=== PATIENT | male | born 1940 | race Caucasian/White ===

== ENCOUNTER 2020-03-24 11:44 | Emergency (ER) | payer SELFPAY ==
[2020-03-24 11:48] VITALS: BP 148/75; PULSE 67; RESP 18; TEMP 36.7; O2SAT 99; BMI 27.3
[2020-03-24 11:53] VITALS: O2SAT 97
--- NOTE | 2020-03-24 11:56 | XR_ITS ---
WS: [id number] Portable AP upright chest, 03/24/2020 Clinical Data: ams/confusion Comparison: None. Findings: No nodules, masses or effusions are seen. The heart is normal. The pulmonary vascularity is not increased. No pneumonia or pneumothorax is seen. The aortic arch and descending aorta show mild tortuosity. XR/XR chest 1V portable [id number] Impression: Atherosclerosis.
--- NOTE | 2020-03-24 11:56 | CT_ITS ---
WS: [id number] CT HEAD TECHNIQUE: Noncontrast CT of the head obtained from the skullbase to the vertex. CLINICAL INFORMATION: ams/confusion COMPARISON: None. DLP: 781.[address] scans at [facility] use at least one of these dose optimization techniques: automat ed exposure control; mA and/or kV adjustment per patient size (includes targeted exams where dose is matched to clinical indication); or iterative reconstruction. FINDINGS: No evidence of intracranial hemorrhage or mass effect. Ventricular system and basal cisterns are oates nt. Mild small vessel changes with moderate parenchymal volume loss. Prior postoperative changes left frontal parietal and temporal craniectomy. Encephalomalacia in the underlying frontal and parietal l obes extending in the superior temporal lobe. Mild small vessel changes. Moderate parenchymal volume loss. Tiny chronic lacunar infarct right thalamus. No hydrocephalus. Vascular calcification. No extra -axial fluid collections. No evidence of mass or mass effect. Paranasal sinuses and mastoid air cells are well aerated. .Normal visualized soft tissues. CT/CT head wo con* [id number] IMPRESSION: 1. No evidence of intracranial hemorrhage or mass effect. 2. Mild small vessel changes. Moderate parenchymal volume loss. 3. Left frontal parietal temporal craniectomy. Encephalomalacia underlying bra in parenchyma. 4. No hydrocephalus. 5. Mild small vessel changes moderate parenchymal volume loss. 6. No acute intracranial findings. Message left for Ayde Jalloh at 03/24/2020 1:43 PM.
--- NOTE | 2020-03-24 11:57 | ECG_ITS ---
[facility] Test Date: 2020-03-24 Pat Name: janey franklin Department: Room: Gender: Male Hospice Nurse: : 1940 Requested By: Ayde Stoll Order Number: [id number] Young MD: Mary Beth Harrison M.D. Measurements Intervals [place] Rate: 61 P: 35 AL: 161 QRS: -11 QRSD: 98 T: 6 QT: 428 QTc: 433 Interpretive Statements SINUS RHYTHM MINIMAL VOLTAGE CRITERIA FOR LVH, CONSIDER NORMAL VARIANT [MEETS CRITERIA IN ONE OF: R(aVL), S(V1), R(V5), R(V5/V6)+S(V1)] No previous ECG available for comparison Electronically Signed On 03-24-2020 20:17:52 CDT by Mary Beth Harrison M.D. [id number]
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
[2020-03-24 12:54] LABS: Basophils % 0.5 %; Eosinophils % 0.6 %; Hematocrit 43.8 % (42.0-52.0); Hemoglobin 14.5 g/dL (11.7-16.6); Lymphocytes # 1.6 10^3/uL (0.8-4.8); Lymphocytes % 25.6 %; Mean Corpuscular HGB Conc 33.1 g/dL (30.0-36.0); Mean Corpuscular Hemoglobin 30.6 pg (28.0-34.0); Mean Corpuscular Volume 92.4 fL (80-94); Monocytes # 0.6 10^3/uL (0.2-0.9); Monocytes % 9.3 %; Neutrophils # 3.96 10^3/uL (1.8-7.7); Neutrophils % 63.7 %; Nucleated Red Blood Cells % 0 %; Platelet Count 199 10^3/cmm (130-400); Red Blood Count 4.74 10^6/uL (4.1-5.3); Red Cell Distribution Width 12.9 % (12.1-15.1); White Blood Count 6.2 10^3/uL (4.0-10.0)
[2020-03-24 13:17] LABS: Troponin(5th) Baseline 11 ng/L (0-15)
[2020-03-24 13:27] LABS: Alanine Aminotransferase 17 U/L (0-41); Alkaline Phosphatase 90 IU/L (40-130); Aspartate Amino Transferase 20 U/L (0-40); Blood Urea Nitrogen 16 mg/dL (8-23); Calcium 9.4 mg/dL (8.5-10.5); Carbon Dioxide 24 mmol/L (22-29); Chloride 105 mmol/L (98-107); Free T4 Free Thyroxine 1.26 ng/dL (0.82-1.77); Globulin 3.1 g/dL (1.3-4.6); Glucose 142 mg/dL (65-115); Magnesium 2.3 mg/dL (1.7-2.3); Osmolality Calculated 289 mOsm/kg (285-295); Sodium 140 mmol/L (136-145); Thyroid Stimulating Hormone 2.98 uIU/mL (0.27-4.20); Total Bilirubin 0.6 mg/dL (0.15-1.2); Total Protein 7.1 g/dL (6.6-8.7)
[2020-03-24 13:31] LABS: Alcohol Level < 10 mg/dL (0-10); Anion Gap 14.7 (5-19); Potassium 3.7 mmol/L (3.5-5.1)
[2020-03-24 13:33] LABS: Add Urine Microscopic? NO
[2020-03-24 13:47] LABS: Bilirubin Urine 1+ (NEGATIVE); Blood Urine Neg (Negative); Glucose Urine UA Norm (Normal); Ketones Urine Negative (Negative); Leukocyte Esterase Urine Negative (Negative); Nitrate Urine Negative (Negative); Protein Urine Neg (Negative); Specific Gravity, Urine 1.015 (1.005-1.030); Urine Appearance Clear (CLEAR); Urine Color Yellow (Yellow); Urobilinogen Urine 4 mg/dL (Negative); pH Urine 5 (5-7)
[2020-03-24 13:49] LABS: Amphetamines Screen Urine Negative (Negative); Barbiturates Screen Urine Negative (Negative); Benzodiazepines Screen Urine Negative (Negative); Cocaine Screen Urine Negative (Negative); Opiate Screen Urine Negative (Negative); PCP Screen Urine Negative (Negative); THC Screen Urine Negative (Negative)
--- NOTE | 2020-03-24 13:57 | ECG_ITS ---
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 Measurements Intervals [place] Rate: 67 P: 71 MD: 159 QRS: -18 QRSD: 101 T: -10 QT: 426 QTc: 451 Interpretive Statements SINUS RHYTHM MODERATE VOLTAGE CRITERIA FOR LVH, CONSIDER NORMAL VARIANT [MEETS CRITERIA IN ONE OF: R(aVL), S(V1), R(V5), R(V5/V6)+S(V1)] Compared to ECG 03/24/2020 12:17:54 No significant changes Electronically Signed On 03-24-2020 20:50:32 CDT by Mar yBeth Harrison M.D. [id number]
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
[2020-03-24 14:05] LABS: INR 0.93 (0.8-1.2)
[2020-03-24] MEDS: haloperidol inj 5 mg/mL INJ 1 mL 2 MG IM (14:24)
[2020-03-24 14:25] LABS: Acetaminophen < 5.0 ug/mL (10-30)
[2020-03-24 15:35] LABS: Troponin 5 2HR 9.26 ng/L (0-15)
[2020-03-24 15:36] LABS: Troponin 5 2HR Delta -1.74 ABS# (0-10)
--- NOTE | 2020-03-24 19:10 | PC.NURSE ---
patient report received from BLAZE Perez and care transferred to BLAZE Aguilar
[2020-03-24 19:27] LABS: Troponin 5 6HR 8.57 ng/L (0-15)
[2020-03-24 19:29] LABS: Troponin 5 6HR Delta -2.43 ng/L (0-12)
--- NOTE | 2020-03-24 20:25 | PC.NURSE ---
PATIENT GIVEN SACK LUNCH BY NURSE
[2020-03-24 20:53] VITALS: BP 122/64; PULSE 62; RESP 16; O2SAT 97
[2020-03-24 21:51] LABS: SARS Covid-2 Antigen Negative (Negative)
[2020-03-25 00:50] VITALS: BP 127/70; PULSE 63; RESP 14; O2SAT 98
== END 2020-03-25 01:08 ==
PROVIDERS: Emergency Provider Emergency Medicine; PCP Nurse Practitioner Family
DX: F23 Brief psychotic disorder (principal); R44.3 Hallucinations, unspecified; R45.1 Restlessness and agitation; F03.90 Unspecified dementia, unspecified severity, without behavioral disturbance, psychotic disturbance, mood disturbance, and anxiety; I70.90 Unspecified atherosclerosis
CPT/HCPCS: 12345; 36415; 70450; 71045; 80053; 80306; 80307; 81003; 83735; 84439; 84443; 84484; 85025; 85610; 87426; 93005; 96372; 99283; 99285; J1630

== ENCOUNTER 2020-08-03 05:29 | Emergency (ER) | payer MEDICARE, SELFPAY ==
[2020-08-03 05:36] VITALS: BP 137/68; PULSE 63; RESP 17; TEMP 36.8; O2SAT 95; BMI 27.3
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
--- NOTE | 2020-08-03 05:53 | XR_ITS ---
WS: [id number] PORTABLE CHEST HISTORY: dyspnea/cough COMPARISON: 03/24/2020 New mild interstitial thickening and haziness over the central LEFT lung. No consolidation. Small LEF T pleural effusion is new. Cardiac size: Mildly enlarged cardiac silhouette. Mediastinum/Aorta: Mild atherosclerosis aorta. No osseous abnormality seen. XR/XR chest 1V portable [id number] IMPRESSION: 1. Area of mild pneumonitis over the central LEFT lung with a small adjacent L EFT pleural effusion. 2. Mild cardiomegaly.
--- NOTE | 2020-08-03 05:53 | ECG_ITS ---
[facility] Test Date: 2020-08-03 Pat Name: David Shelley Department: Room: Gender: Male Cause Analyst: : 1940 Requested By: Ayden Ramirez Order Number: [id number] Hector MD: Mary Beth Harrison M.D. Measurements Intervals [place] Rate: 58 P: 56 FL: 148 QRS: -3 QRSD: 101 T: 4 QT: 446 QTc: 439 Interpretive Statements SINUS BRADYCARDIA Compared to ECG 03/24/2020 14:12:50 Sinus rhythm no longer present Electronically Signed On 08-03-2020 20:45:12 SHEEP OR CALF GRADER by Mary Beth Harrison M.D. [id number]
[2020-08-03 06:01] VITALS: BP 114/68; PULSE 58; RESP 12; O2SAT 96
[2020-08-03 06:10] LABS: Basophils % 0.7 %; Eosinophils # 0.2 10^3/uL (0.0-0.8); Eosinophils % 3.2 %; Hematocrit 43.2 % (42.0-52.0); Hemoglobin 14.2 g/dL (11.7-16.6); Lymphocytes # 1.6 10^3/uL (0.8-4.8); Lymphocytes % 28.8 %; Mean Corpuscular HGB Conc 32.9 g/dL (30.0-36.0); Mean Corpuscular Hemoglobin 28.4 pg (28.0-34.0); Mean Corpuscular Volume 86.4 fL (80-94); Mean Platelet Volume 9.7 fL (7.4-10.4); Monocytes # 0.5 10^3/uL (0.2-0.9); Monocytes % 8.8 %; Neutrophils # 3.24 10^3/uL (1.8-7.7); Neutrophils % 58.3 %; Nucleated Red Blood Cells % 0 %; Platelet Count 218 10^3/cmm (130-400); Red Cell Distribution Width 14.1 % (12.1-15.1); White Blood Count 5.6 10^3/uL (4.0-10.0)
[2020-08-03 06:34] LABS: Ammonia 23 umol/L (16-60); Lactic Sepsis W/Reflex 1.3 mmol/L (0.5-2.2)
[2020-08-03 06:35] LABS: Alanine Aminotransferase 10 U/L (0-41); Alkaline Phosphatase 98 IU/L (40-130); Anion Gap 11.8 (5-19); Aspartate Amino Transferase 15 U/L (0-40); Blood Urea Nitrogen 17 mg/dL (8-23); Calcium 9.2 mg/dL (8.5-10.5); Carbon Dioxide 27 mmol/L (22-29); Chloride 105 mmol/L (98-107); Globulin 2.2 g/dL (1.3-4.6); Glucose 119 mg/dL (65-115); Osmolality Calculated 293 mOsm/kg (285-295); Potassium 3.8 mmol/L (3.5-5.1); Sodium 140 mmol/L (136-145); Total Bilirubin 0.7 mg/dL (0.15-1.2); Total Protein 6.2 g/dL (6.6-8.7); Troponin(5th) Baseline 16 ng/L (0-15)
[2020-08-03 06:39] LABS: Acetaminophen < 5.0 ug/mL (10-30); Alcohol Level < 10 mg/dL (0-10); Salicylate < 0.3 mg/dL (3-10)
[2020-08-03 07:02] LABS: Ketone (Acetest) Serum Negative (Negative)
[2020-08-03 07:12] LABS: Add Urine Culture? No; Add Urine Microscopic? YES; Bacteria Urine TRACE /hpf; Bilirubin Urine 1+ (Negative); Blood Urine 2+ (Negative); Glucose Urine UA Norm (Normal); Ketones Urine 1+ (Negative); Leukocyte Esterase Urine Negative (Negative); Mucus Urine 1+ /hpf; Nitrate Urine Negative (Negative); Protein Urine Trace (Negative); RBC Urine 0-4 /hpf (0-2); Squamous Epithelial Cell Urine 0-4 /hpf (0-5); Urine Appearance SL Hazy (CLEAR); Urine Color Yellow (Yellow); Urobilinogen Urine 4 mg/dL (Negative); pH Urine 5 (5-7)
[2020-08-03 07:15] LABS: Amphetamines Screen Urine Negative (Negative); Barbiturates Screen Urine Negative (Negative); Benzodiazepines Screen Urine Negative (Negative); Cocaine Screen Urine Negative (Negative); Opiate Screen Urine Negative (Negative); PCP Screen Urine Negative (Negative); THC Screen Urine Negative (Negative)
--- NOTE | 2020-08-03 07:31 | CTR_ITS ---
PROCEDURE INFORMATION: Exam: CT Head Without Contrast Exam date and time: 08/03/2020 7:35 AM Age: 80 years old Clinical indication: Altered mental status/memory loss; Confusion or disorientation; Prior surgery; Surgery date: 6+ months; Additional info: AMS TECHNIQUE: Imaging protocol: Computed tomography of the head without contrast. Radiation optimization: All CT scans at this facility use at least one of these dose optimization techniques: automated exposure control; mA and/or kV adjustment per patient size (includes targeted exams where dose is matched to clinical indication); or iterative reconstruction. COMPARISON: CT head wo con* [id number] 03/24/2020 1:09 PM RADIATION DOSE METRICS: Total DLP (mGy-cm): 773.49 FINDINGS: Brain: There is chronic left middle cerebral artery distribution infarct. There is a small chronic right thalamic lacunar infarct. There is no acute intracranial hemorrhage. No extra-axial fluid collection. No evidence of acute infarct. Nichols white differentiation is intact. There is no evidence of mass. There is no mass effect or midline shift. Cerebral ventricles: No ventriculomegaly. Bones/joints: There is left temporoparietal craniectomy. Paranasal sinuses: Visualized sinuses are unremarkable. No fluid levels. Mastoid air cells: No significant mastoid effusion. Soft tissues: Unremarkable as visualized. CT/CT head wo con* [id number] IMPRESSION: No evidence of acute intracranial abnormality. No acute hemorrhage. No evidence of acute infarct or mass. Chronic left MCA infarct. Radiation Dose CTDIVOL = (mGy): DLP = 773.49 (mGy-cm)
--- NOTE | 2020-08-03 07:53 | ECG_ITS ---
[facility] Test Date: 2020-08-03 Pat Name: David Shelley Department: Room: Gender: Male Log Inspector: : 1940 Requested By: Ayden Ramirez Order Number: [id number] Hector MD: Mary Beth Harrison M.D. Measurements Intervals [place] Rate: 59 P: 62 DC: 160 QRS: 2 QRSD: 96 T: 15 QT: 437 QTc: 434 Interpretive Statements SINUS BRADYCARDIA Compared to ECG 08/03/2020 06:30:44 No significant changes Electronically Signed On 08-03-2020 21:31:32 WOOD FUEL PELLETIZER by Mayr Beth Harrison M.D. [id number]
[2020-08-03 08:00] LABS: Base Excess ABG 0.6 mmol/L (-2.0-2.0); HCO3 ABG 24.7 mmol/L (22-26); Oxygen Saturation ABG 98.3; PO2 ABG 83.3 mmHg (80.0-100.0)
[2020-08-03 08:03] LABS: Carboxyhemoglobin 0.8 %THgb (0.4-20.1); HGB O2 Sat 97.2 % (95-100); Methemoglobin 0.3 % (0.4-1.5); Total Hemoglobin 14.8 g/dL (14-18)
[2020-08-03 08:25] LABS: Arterial Blood Gas Hematocrit 45.2 % (42-52); Ionized Calcium Level - ABG 1.2 mmol/L (1.1-1.4)
[2020-08-03 10:12] LABS: Troponin 5 2HR 14.62 ng/L (0-15)
[2020-08-03 10:13] LABS: Troponin 5 2HR Delta -1.38 ABS# (0-10)
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
--- NOTE | 2020-08-03 11:00 | PC.PHAR ---
pt unable to verify medications-pts fmailjose jb states she doesnt know all the names and to call the [facility] office-called spoke with nael the medications entered are from the med list at [facility]-pts family states the pt has been out of medications for 5 days
[2020-08-03 11:44] LABS: SARS Covid-2 Antigen Negative (Negative)
--- NOTE | 2020-08-03 11:53 | ECG_ITS ---
[facility] Test Date: 2020-08-03 Pat Name: David Shelley Department: Room: Gender: Male Repossession Agent: : [id number] Requested By: Ayden Ramirez Order Number: [id number] Hector MD: Mary Beth Harrison M.D. Measurements Intervals [place] Rate: 60 P: ID: QRS: 4 QRSD: 95 T: 11 QT: 422 QTc: 422 Interpretive Statements SINUS RHYTHM Artifact compared to ECG 08/03/2020 08:02:42 Sinus bradycardia no longer present Electronically Signed On 08-04-2020 13:56:45 [employer] by Mary Beth Harrison M.D. [email or web address]
[2020-08-03 13:20] VITALS: BP 119/52; PULSE 60; RESP 18; O2SAT 99
[2020-08-03] MEDS: levoFLOXacin 750 mg Tablet PO (13:39)
[2020-08-06 18:01] LABS: ABG PH Result 7.43 (7.35-7.45); Alveolar-Arterial Oxygen Gradi 2.6 mmHg (5-10); Blood Gas Operator Identificat gc; Blood Gas Sample Site Brachial, right; Blood Gas Sample Type Arterial; Oxygen Device ROOM AIR
== END 2020-08-03 14:50 ==
PROVIDERS: Emergency Provider Family Medicine; PCP Nurse Practitioner Family
DX: F23 Brief psychotic disorder (principal); F03.90 Unspecified dementia, unspecified severity, without behavioral disturbance, psychotic disturbance, mood disturbance, and anxiety; J18.9 Pneumonia, unspecified organism; Z87.891 Personal history of nicotine dependence; Z79.899 Other long term (current) drug therapy
CPT/HCPCS: 12345; 36415; 70450; 71045; 80051; 80053; 80306; 80307; 81001; 82009; 82140; 82330; 82805; 83605; 84484; 85025; 87040; 87426; 93005; 99281; 99285

== ENCOUNTER → 2020-08-22 15:24 | Outpatient (BNVA) | payer MEDICARE, SELFPAY | PROVIDERS: PCP Nurse Practitioner Family; Referring Provider Chiropractor Orthopedic; Visit Provider Specialist | DX: G30.9 Alzheimer's disease, unspecified (principal); F02.80 Dementia in other diseases classified elsewhere, unspecified severity, without behavioral disturbance, psychotic disturbance, mood disturbance, and anxiety; Z87.891 Personal history of nicotine dependence | CPT/HCPCS: 96116; 99204; 99205 ==

== ENCOUNTER 2021-08-04 21:36 | Emergency (ER) | payer MEDICARE, OTHER, SELFPAY ==
[2021-08-04 21:42] VITALS: BP 101/61; PULSE 64; RESP 18; TEMP 36.7; O2SAT 96; BMI 28.8
--- NOTE | 2021-08-04 21:49 | CTR_ITS ---
PROCEDURE INFORMATION: Exam: CT Head Without Contrast Exam date and time: 08/04/2021 9:49 PM Age: 81 years old Clinical indication: Injury or trauma; Fall; Bleeding/hemorrhage; Prior surgery; Surgery date: 6+ months; Surgery type: Brain TECHNIQUE: Imaging protocol: Computed tomography of the head without contrast. Radiation optimization: All CT scans at this facility use at least one of these dose optimization techniques: automated exposure control; mA and/or kV adjustment per patient size (includes targeted exams where dose is matched to clinical indication); or iterative reconstruction. COMPARISON: CT head wo con* [id number] 08/03/2020 7:34 AM RADIATION DOSE METRICS: Total DLP (mGy-cm): 1693.17 FINDINGS: Brain: There is encephalomalacia in the left frontal and temporal lobes from previous surgery. Age appropriate atrophy and small vessel ischemic change. No evidence of intracranial hemorrhage, mass effect, midline shift or extra-axial fluid collections. Midline structures are normal. Nichols-white matter differentiation is normal. Cerebral ventricles: No ventriculomegaly. Paranasal sinuses: Visualized sinuses are unremarkable. No fluid levels. Mastoid air cells: Visualized mastoid air cells are well aerated. Orbital cavity: The patient has had bilateral lens replacement surgery. Vasculature: Carotid and vertebral artery atherosclerotic calcification. Bones/joints: There has been a left temporal craniectomy. Soft tissues: Unremarkable. CT/CT head wo con* [id number] IMPRESSION: No acute intracranial injury. Surgical changes as described above. Correlate clinically since no useful clinical history was given at the time of this dictation.
--- NOTE | 2021-08-04 21:49 | CTR_ITS ---
PROCEDURE INFORMATION: Exam: CT Cervical Spine Without Contrast Exam date and time: 08/04/2021 9:49 PM Age: 81 years old Clinical indication: Injury or trauma; Fall; Blunt trauma TECHNIQUE: Imaging protocol: Computed tomography images of the cervical spine without contrast. Radiation optimization: All CT scans at this facility use at least one of these dose optimization techniques: automated exposure control; mA and/or kV adjustment per patient size (includes targeted exams where dose is matched to clinical indication); or iterative reconstruction. COMPARISON: CT head wo con* [id number] 08/04/2021 10:06 PM RADIATION DOSE METRICS: Total DLP (mGy-cm): 980.58 FINDINGS: Vertebrae: There are mild degenerative changes present. Normal alignment. No acute fractures. Soft tissues: Unremarkable. Lungs: Lung apices are normal. CT/CT cervical spin wo con* [id number] IMPRESSION: No acute injury.
[2021-08-04 22:40] LABS: Basophils % 0.5 %; Eosinophils # 0.1 10^3/uL (0.0-0.8); Hematocrit 37.4 % (42.0-52.0); Hemoglobin 12.5 g/dL (11.7-16.6); Lymphocytes # 1.7 10^3/uL (0.8-4.8); Lymphocytes % 26.2 %; Mean Corpuscular HGB Conc 33.4 g/dL (30.0-36.0); Mean Corpuscular Hemoglobin 30.2 pg (28.0-34.0); Mean Corpuscular Volume 90.3 fl (80-94); Mean Platelet Volume 9.9 fL (7.4-10.4); Monocytes # 0.7 10^3/uL (0.2-0.9); Monocytes % 10.4 %; Neutrophils % 60.7 %; Nucleated Red Blood Cells % 0 %; Platelet Count 225 10^3/cmm (130-400); Red Blood Count 4.14 10^6/uL (4.1-5.3); Red Cell Distribution Width 13.2 % (12.1-15.1); White Blood Count 6.4 10^3/uL (4.0-10.0)
[2021-08-04 23:00] LABS: Alanine Aminotransferase 8 U/L (0-41); Albumin Level 3.8 g/dL (3.5-5.2); Alkaline Phosphatase 73 IU/L (40-130); Aspartate Amino Transferase 15 U/L (0-40); Blood Urea Nitrogen 21 mg/dL (8-23); Calcium 8.9 mg/dL (8.5-10.5); Carbon Dioxide 26 mmol/L (22-29); Chloride 104 mmol/L (98-107); Globulin 2.2 g/dL (1.3-4.6); Glucose 95 mg/dL (65-115); Osmolality Calculated 291 mOsm/kg (285-295); Sodium 139 mmol/L (136-145); Total Bilirubin 0.4 mg/dL (0.15-1.2)
--- NOTE | 2021-08-05 00:59 | ED_ITS ---
HPI - Fall General: Chief Complaint: Fall Stated Complaint: FALL Time Seen by Provider: 08/04/21 21:39 History of Present Illness: HPI Narrative: 81-year-old senior living patient presents after a fall out of bed. He evidently contused his left elbow and had negative x-rays today in the senior living, but was sent here for evaluation. He has a history of dementia, and history is difficult given that MD complaint: fall Onset (ago): hour(s) Fall from: out of bed Place fall occurred: senior living/SNF Loss of consciousness: Unsure Symptoms prior to fall: other Context: history of frequent falls and other Location of injury - extremities: Left: elbow Associated symptoms-after fall: Reports no associated symptoms Review of Systems General: Reports: ROS unobtainable due to medical condition PFSH ED PFSH: Medical History Dementia History of traumatic brain injury Surgical History History of brain surgery Family History Father Diabetes Social History Smoking and tobacco status: former smoker Alcohol intake: former History of recent travel: No Physical Exam Const: COMMON NORMALS: no acute distress EXAM LIMITATIONS: altered mental status GENERAL APPEARANCE: comfortable; not in distress HENMT: COMMON NORMALS: normocephalic and atraumatic HEAD & SCALP: normocephalic and atraumatic Eye: COMMON NORMALS: Equal, round and reactive pupils present and EOMs intact bilaterally PUPIL: Yes Equal, round and reactive pupils present Chest: COMMONS NORMALS: normal inspection of the chest Resp: COMMON NORMALS: normal respiratory effort, No use of accessory muscles and clear to auscultation bilaterally AUSCULTATION: clear to auscultation bilaterally Cardio: COMMON NORMALS: regular rate and regular rhythm RATE: regular rate RHYTHM: regular rhythm GI: COMMON NORMALS: Soft to palpation and non-tender INSPECTION: Yes abdominal distension (Mild with tympany) PALPATION: Yes Soft to palpation Extremity: NARRATIVE EXTREMITY EXAM: No deformity to extremities. No increased pain with movement of upper or lower extremities passively. Course Vital Signs: Vital signs: Vital Signs Temperature 98.1 F 08/04/21 21:42 Pulse Rate 64 08/04/21 21:42 Respiratory Rate 18 08/04/21 21:42 Blood Pressure 101/61 08/04/21 21:42 Pulse Oximetry 96 08/04/21 21:42 MDM - Fall MDM Narrative: Medical decision making narrative: Laboratory is benign in this patient. He is afebrile. He has a history of dementia so history is difficult. CT of the head and cervical spine are negative. His vitals are good. He will be allowed back to the senior living. Lab Data: Labs: Lab Results 08/04/21 08/04/21 22:32 22:32 WBC 6.4 10^3/uL 10^3/ uL (4.0-10.0) RBC 4.14 10^6/uL 10^6 /uL (4.1-5.3) Hgb 12.5 g/dL g/dL (11.7-16.6) Hct 37.4 % L % (42.0-52.0) MCV 90.3 fl fl (80-94) MCH 30.2 pg pg (28.0-34.0) MCHC 33.4 g/dL g/dL (30.0-36.0) RDW 13.2 % % (12.1-15.1) Plt Count 225 10^3/cmm 10^3 /cmm (130-400) MPV 9.9 fL fL (7.4-10.4) Neut % (Auto) 60.7 % % Lymph % (Auto) 26.2 % % [place] % (Auto) 10.4 % % Eos % (Auto) 2.0 % % Baso % (Auto) 0.5 % % Neut # (Auto) 3.90 10^3/uL 10^3 /uL (1.8-7.7) Lymph # (Auto) 1.7 10^3/uL 10^3/ uL (0.8-4.8) [place] # (Auto) 0.7 10^3/uL 10^3/ uL (0.2-0.9) Eos # (Auto) 0.1 10^3/uL 10^3/ uL (0.0-0.8) Baso # (Auto) 0.0 10^3/uL 10^3/ uL (0.0-0.1) Nucleated RBC % (a uto) 0 % % Nucleated RBCs # 0.0 /100WBC /100W BC Sodium 139 mmol/L mmol/L (136-145) Potassium 4.0 mmol/L mmol/L (3.5-5.1) Chloride 104 mmol/L mmol/L (98-107) Carbon Dioxide 26 mmol/L mmol/L (22-29) Anion Gap 13.0 (5-19) BUN 21 mg/dL mg/dL (8-23) Creatinine 0.7 mg/dL mg/dL (0.7-1.2) GFR Calculation Not Reportable Glucose 95 mg/dL mg/dL (65-115) Calculated Osmolal ity 291 mOsm/kg mOsm/ kg (285-295) Calcium 8.9 mg/dL mg/dL (8.5-10.5) Total Bilirubin 0.4 mg/dL mg/dL (0.15-1.2) AST 15 U/L U/L (0-40) ALT 8 U/L U/L (0-41) Alkaline Phosphata se 73 IU/L IU/L (40-130) Total Protein 6.0 g/dL L g/dL (6.6-8.7) Albumin 3.8 g/dL g/dL (3.5-5.2) Globulin 2.2 g/dL g/dL (1.3-4.6) Discharge Plan Discharge Patient Disposition: Home Clinical Impression: Dementia, Fall Condition: Stable Prescriptions: No Action divalproex [Depakote] 250 mg tablet,delayed release (DR/EC) 250 mg PO BID Qty: 180 RF: 1 Aricept 5 mg tablet 5 mg PO QPM Qty: 90 RF: 1 Proscar 5 mg tablet 5 mg PO DAILY Qty: 90 RF: 1 melatonin 10 mg tablet 10 mg PO BEDTIME Qty: 90 RF: 1 mirtazapine 7.5 mg tablet 7.5 mg PO BEDTIME Qty: 90 RF: 1 olanzapine 2.5 mg tablet 2.5 mg PO DAILY Qty: 90 RF: 1 omeprazole 20 mg tablet,delayed release (DR/EC) 20 mg PO DAILY Qty: 90 RF: 1 oxybutynin chloride 5 mg tablet extended release 24hr 5 mg PO DAILY Qty: 90 RF: 1 Effexor XR 37.5 mg capsule,extended release 24hr See Rx Instructions .ROUTE .COMPLEX Qty: 180 RF: 1 albuterol sulfate 2.5 mg /3 mL (0.083 %) Solution For Nebulization 2.5 mg INHALATION Q4H PRN (Reason: Shortness Of Breath) RF: 0 Tylenol Extra Strength 500 mg Tablet 500 - 1,000 mg PO PRN RF: 0 Discharge Orders: Discharge ED (Routine); Ordered 08/05/21 Ordered By: Julio Rodriguez Referrals: Araceli Ren FNP [Primary Care Provider] - Discharge Diet: Advance as tolerated Discharge Activity: Increase activity as tolerated Patient Instructions: Dementia (ED), Fall Prevention (ED) Activity Restrictions/Additional Instructions: Return for worsening mental status, vomiting, complaints of pain, any other concerning symptoms. Coding Level of Care Code ED Rubber Off for Sonia Card
== END 2021-08-05 01:51 | disposition home or self-care (01) ==
PROVIDERS: Emergency Provider Emergency Medicine; PCP Nurse Practitioner Family
DX: F03.90 Unspecified dementia, unspecified severity, without behavioral disturbance, psychotic disturbance, mood disturbance, and anxiety (principal); W19.XXXA Unspecified fall, initial encounter; Y92.129 Unspecified place in nursing home as the place of occurrence of the external cause; Z87.891 Personal history of nicotine dependence; Z87.820 Personal history of traumatic brain injury
CPT/HCPCS: 70450; 72125; 80053; 85025; 99283

== ENCOUNTER 2021-09-17 11:09 | Emergency (ER) | payer MEDICARE, OTHER, SELFPAY ==
[2021-09-17] VITALS (7 sets, daily range): BP systolic 105–135; BP diastolic 74–86; PULSE 57–75; RESP 12–20; TEMP 36.4; O2SAT 96–98; BMI 19.2
--- NOTE | 2021-09-17 11:10 | ED_ITS ---
HPI - Head Injury General: Chief complaint: Fall Stated complaint: AMS/LACERATION TOP OF HEAD Time Seen by Provider: 09/17/21 11:09 Limitations: altered mental status History of Present Illness: Mr Shelley is an 81-year-old gentleman who, per chart review, has Alzheimer's disease and resides at a skilled nursing who presents to the emergency department due to unwitnessed fall with head injury. Apparently a laceration was noted during shift change of unclear circumstances at about 7 AM. EMS was called around 10 AM and the patient was subsequently brought here. The patient himself does not provide any meaningful history, this is similar to prior ED presentations as documented however per EMS report to nurse the patient is significantly communicative and ambulatory. History is otherwise limited by patient's mental status. Onset (ago): hour(s) Mechanism of Injury: unsure Place: home (skilled nursing) Loss of Consciousness: unsure Location of injury: occipital Review of Systems General: Reports: ROS unobtainable due to mental status PFS ED PFSH: Medical History Dementia History of traumatic brain injury Surgical History History of brain surgery Family History Father Diabetes Social History Smoking and tobacco status: former smoker Alcohol intake: former History of recent travel: No Physical Exam Const: COMMON NORMALS: alert EXAM LIMITATIONS: altered mental status GENERAL APPEARANCE: ill appearing (Chronically) HENMT: COMMON NORMALS: normocephalic HEAD & SCALP: normocephalic and laceration (Posterior head approximately 3 cm) OTHER: Aside from laceration no significant trauma appreciated, jaw alignment normal, no segundo signs or raccoon eyes, no septal hematoma. Eye: COMMON NORMALS: conjunctivae normal CONJUNCTIVA: Yes conjunctivae normal SCLERA: sclerae normal Neck/C-Spine: COMMON NORMALS: supple GENERAL: Yes trachea midline Resp: COMMON NORMALS: normal respiratory effort and clear to auscultation bilaterally AUSCULTATION: clear to auscultation bilaterally Cardio: COMMON NORMALS: regular rate and regular rhythm RATE: regular rate RHYTHM: regular rhythm GI: COMMON NORMALS: Soft to palpation PALPATION: Yes Soft to palpation, No Guarding due to palpation present (GI) and No Rigid due to palpation PER CUSSION: normal to percussion Back/Pelvis: COMMON NORMALS: no thoracic nor lumbar tenderness Extremity: GENERAL: Yes normal exam except as noted and No edema Neuro: COMMON NORMALS: moves all extremities SENSORIUM/ORIENTATION: Yes alert and Yes Orientation impaired Psych: MEMORY/COGNITION: Yes memory grossly impaired and Yes cognition grossly impaired Procedures Laceration Laceration 1: Site: scalp Side (If applicable): left (near midline occiput) Size (cm): 3 Depth: simple, single layer Local Anesthetic: lidocaine 1% Amount of anesthesia used (mL): 2 Skin layer closed with: other (alvaro ) Number of sutures: 10 Technique: simple, interrupted Course ED course: - Patient was seen and evaluated by me at bedside - Patient placed on cardiac monitors, IV access obtained - Initial evaluation notable for exam as above, limitation of mental status which is reportedly chronic for the patient -Tdap updated - Labs notable for no leukocytosis, normal hemoglobin. No acute electrolyte derangement. Delta troponin is negative. Urinalysis with hematuria of unclear etiology - Imaging notable for head and neck CT negative for acute traumatic injury requiring intervention. Chest x-ray without acute lung pathology, there is a p robable nondisplaced fracture. Given this finding as well as hematuria and limited history due to patient's mental status additional CT imaging is felt to be warranted. CT chest abdomen pelvis notable for possibly acute left fourth and fifth rib fractures, no other acute injury. Patient is found to have marked enlargement of the prostate which may explain the patient's hematuria however does not require further inpatient management or ED evaluation. - Laceration repaired as noted, more alvaro use than typical due to wound tendency to splay open. Given duration from unclear time of fall to repair I will give the patient a course of antibiotics - Upon serial reexamination after treatment the patient was improved - Based on patient history, evaluation, labs, and imaging as interpreted the most likely cause of the patient's condition is fall of unclear etiology with head injury and laceration requiring repair as well as rib fractures - The results of ED evaluation were discussed with the patient including prescriptions and/or symptomatic cares (if applicable) including appropriate and responsible use, followup plan, and return precautions. The patient verbalized understanding and felt safe for discharge. - Patient discharged in satisfactory condition. Note: Click bubbles or prepopulated west in note writing are used for assistance with data collection and billing and are inherently more limited than narrative and other text portions of this note. Please use narrative for additional clinical history and defer to narrative/free test for any case of contradictory information. If information appears in only free text or click bubble it should be considered present or absent as reported. Please contact note service writer advisor for clarifications of clinical information or contradictory information. MDM is a brief summary, contradictory or erroneous seeming information should be clarified and full note should be reviewed. Vital Signs: Vital signs: Vital Signs Temperature 97.5 F L 09/17/21 11:17 Pulse Rate 75 09/17/21 18:15 Respiratory Rate 16 09/17/21 18:15 Blood Pressure 105/86 09/17/21 18:15 Pulse Oximetry 98 09/17/21 18:15 MDM - Head Injury Medcial Decision Making 81-year-old male with history of dementia presenting with unwitnessed fall and head injury with laceration. ED evaluation with CT scans performed only notable for the laceration and unclear though likely acute rib fractures. Incidental finding of enlarged prostate and hematuria. Laceration repaired with alvaro. Tdap updated. Discharged back to nursing facility in satisfactory condition. Medical Records I reviewed the patient's medical records. Lab Data I reviewed the patient's lab results. : 09/17/21 11:15 09/17/21 11:15 Radiology Impressions Cervical Spine CT 09/17/21 11:20 IMPRESSION: 1. No acute cervical spine fracture. 2. No high-grade central or foraminal stenosis. 3. Cervical spondylitic disease as described above. Head CT 09/17/21 11:20 IMPRESSION: 1. No acute intracranial hemorrhage or edema. 2. Large area of encephalomalacia LEFT frontal temporal lobe with a LEFT craniectomy. Stable over multiple prior exams. Chest X-Ray 09/17/21 12:28 IMPRESSION: 1. Probable nondisplaced fracture along the lateral margin of the left fourth rib. 2. No acute infiltrate or pneumothorax. Chest/Abdomen/Pelvis CT 09/17/21 12:28 IMPRESSION: 1. No pulmonary contusion or pneumothorax. 2. Age indeterminate but possibly acute lateral LEFT fourth and fifth rib fractures. There are additional more posterior fractures in the upper LEFT thorax which appear healed. 3. No visceral organ injury. 4. No ascites or free air. 5. Marked prostate enlargement. Laboratory Results WBC 6.1 10^3/uL (4.0-10.0) 09/17/21 11:15 RBC 3.90 10^6/uL (4.1-5.3) L 09/17/21 11:15 Hgb 11.8 g/dL (11.7-16.6) 09/17/21 11:15 Hct 35.9 % (42.0-52.0) L 09/17/21 11:15 MCV 92.1 fl (80-94) 09/17/21 11:15 MCH 30.3 pg (28.0-34.0) 09/17/21 11:15 MCHC 32.9 g/dL (30.0-36.0) 09/17/21 11:15 RDW 13.2 % (12.1-15.1) 09/17/21 11:15 Plt Count 226 10^3/cmm (130-400) 09/17/21 11:15 MPV 9.8 fL (7.4-10.4) 09/17/21 11:15 Neut % (Auto) 57.7 % 09/17/21 11:15 Lymph % (Auto) 28.9 % 09/17/21 11:15 [place] % (Auto) 9.9 % 09/17/21 11:15 Eos % (Auto) 2.5 % 09/17/21 11:15 Baso % (Auto) 0.8 % 09/17/21 11:15 Neut # (Auto) 3.50 10^3/uL (1.8-7.7) 09/17/21 11:15 Lymph # (Auto) 1.8 10^3/uL (0.8-4.8) 09/17/21 11:15 [place] # (Auto) 0.6 10^3/uL (0.2-0.9) 09/17/21 11:15 Eos # (Auto) 0.2 10^3/uL (0.0-0.8) 09/17/21 11:15 Baso # (Auto) 0.1 10^3/uL (0.0-0.1) 09/17/21 11:15 Nucleated RBC % (auto) 0 % 09/17/21 11:15 Nucleated RBCs # 0.0 /100WBC 09/17/21 11:15 Sodium 140 mmol/L (136-145) 09/17/21 11:15 Potassium 4.1 mmol/L (3.5-5.1) 09/17/21 11:15 Chloride 105 mmol/L (98-107) 09/17/21 11:15 Carbon Dioxide 24 mmol/L (22-29) 09/17/21 11:15 Anion Gap 15.1 (5-19) 09/17/21 11:15 BUN 22 mg/dL (8-23) 09/17/21 11:15 Creatinine 0.6 mg/dL (0.7-1.2) L 09/17/21 11:15 GFR Calculation Not Reportable 09/17/21 11:15 Glucose 100 mg/dL (65-115) 09/17/21 11:15 POC Glucose 94 mg/dL (70-110) 09/17/21 11:27 Calculated Osmolality 293 mOsm/kg (285-295) 09/17/21 11:15 Calcium 8.9 mg/dL (8.5-10.5) 09/17/21 11:15 Total Bilirubin 0.3 mg/dL (0.15-1.2) 09/17/21 11:15 AST 14 U/L (0-40) 09/17/21 11:15 ALT 10 U/L (0-41) 09/17/21 11:15 Alkaline Phosphatase 90 IU/L (40-130) 09/17/21 11:15 Troponin T Baseline 16 ng/L (0-15) H 09/17/21 11:15 Troponin T 120 Minute 12.93 ng/L (0-15) 09/17/21 13:07 Delta Troponin T -3.07 ABS# (0-10) L 09/17/21 13:07 Total Protein 6.3 g/dL (6.6-8.7) L 09/17/21 11:15 Albumin 3.8 g/dL (3.5-5.2) 09/17/21 11:15 Globulin 2.5 g/dL (1.3-4.6) 09/17/21 11:15 Urine Color [place] (Yellow) 09/17/21 12:22 Urine Appearance Hazy (CLEAR) A 09/17/21 12:22 Urine pH 7 (5-7) 09/17/21 12:22 Ur Specific [place] 1.015 (1.005-1.030) 09/17/21 12:22 Urine Protein 1+ (Negative) H 09/17/21 12:22 Urine Glucose (UA) Norm (Normal) 09/17/21 12:22 Urine Ketones Negative (Negative) 09/17/21 12:22 Urine Blood 3+ (Negative) H 09/17/21 12:22 Urine Nitrate Negative (Negative) 09/17/21 12:22 Urine Bilirubin Neg (Negative) 09/17/21 12:22 Urine Urobilinogen 1 mg/dL (Negative) H 09/17/21 12:22 Ur Leukocyte Esterase Negative (Negative) 09/17/21 12:22 Urine RBC Too numerous to cnt /hpf (0-2) H 09/17/21 12:22 Urine WBC 10-15 /hpf (0-5) H 09/17/21 12:22 Ur Squamous Epith Cells 0-4 /hpf (0-5) H 09/17/21 12:22 Amorphous Sediment Not Reportable 09/17/21 12:22 Urine Bacteria Trace /hpf (NONE) 09/17/21 12:22 EKG Data EKG 1: I personally reviewed and interpreted this EKG as follows: EKG interpretation date: 09/17/21 EKG interpretation time: 11:46 Interpretation: Twelve-lead EKG shows a regular rhythm at a rate of 56. IN interval 143, QRS duration 97, QTc 435. Normal axis. Interpretation: Sinus bradycardia. Nonspecific ST segment abnormalities. EKG 2: I personally reviewed and interpreted this EKG as follows: EKG interpretation date: 09/17/21 EKG interpretation time: 13:12 Interpretation: Twelve-lead EKG shows a regular rhythm at a rate of 63. IN interval 183, QRS duration 98, QTc 436. Normal axis. Interpretation: Sinus rhythm. Nonspecific ST segment abnormalities. Discharge Plan Discharge Patient Disposition: Home Clinical Impression: Laceration of scalp, Head injury, Multiple rib fractures, Altered mental status, Fall, Hematuria, Enlarged prostate Condition: Stable Prescriptions: New cephalexin 500 mg capsule 500 mg PO Q6H 7 Days Qty: 28 0RF No Action medroxyprogesterone 10 mg tablet 10 mg PO DAILY@07 0RF Tylenol 325 mg Tablet 650 mg PO Q6H PRN (Reason: Pain) 0RF Paxil 10 mg Tablet 5 mg PO DAILY@07 0RF Rx Instructions: for 3 days (last dose 09/17/21) sertraline 25 mg tablet 25 mg PO DAILY@07 0RF divalproex 125 mg capsule, delayed rel sprinkle 500 mg PO BID@ 0RF memantine 5 mg Tablet 5 mg PO DAILY@07 0RF Milk Of Magnesia Concentrated 2,400 mg/10 mL Suspension 30 ml PO DAILY PRN (Reason: Constipation) 0RF Combigan 0.2-0.5 % Drops 1 drp OPHTHALMIC (EYE) BID@ 0RF Rx Instructions: left eye melatonin 10 mg Tablet 10 mg PO BEDTIME@ 0RF omeprazole 20 mg tablet,delayed release (DR/EC) 20 mg PO DAILY@07 0RF Zyprexa 7.5 mg Tablet 7.5 mg PO DAILY@19 0RF Discharge Orders: Discharge ED (Routine); Ordered 09/17/21 Ordered By: Eric Guido Referrals: Araceli Ren FNP [Primary Care Provider] - Discharge Diet: Usual diet Discharge Activity: Resume usual activity Patient Instructions: Scalp Laceration, How to Use an Incentive Spirometer (ED), Rib Fracture (ED), Fall Prevention for Older Adults (ED), Head Injury (ED), Staple Care (ED), Opioid Safety Activity Restrictions/Additional Instructions: Thank you for visiting the emergency department. You were seen and evaluated for a fall with head injury. The exact circumstances of your fall are unclear. Your scalp laceration was repaired with 10 alvaro. These should be removed in 10 days. Do not use condoms or anything else that may catch on the alvaro, please be cautious with hair washing and do not wash hair for the next 24 hours after which you may clean the area however please do not soak. Given that this laceration had to be repaired and I do not know when it occurred I will prescribe antibiotics. You were also noted to have rib fractures though it is unclear whether these are acute or not. You will be discharged with an incentive spirometer. Pain control is essential so please use Tylenol and ibuprofen for symptom treatment. Given your history of falls I will defer opiate pain control to the patient's primary care physician and recommend evaluation today or tomorrow by said physician. Please follow-up with your primary care provider. Please return to the emergency department for any evidence of worsening, any infectious symptoms such as pneumonia, or anything else that you are concerned about and feel needs emergency department evaluation. Coding Level of Care Code ED Medical Billing Specialist for Sonia Card Exam Comprehensive
--- NOTE | 2021-09-17 11:20 | CT_ITS ---
WS: [id number] CT CERVICAL SPINE HISTORY: fall, head injury, ams TECHNIQUE: Contiguous 2.5 mm axial imaging performed through the entire cervical spine. Sagittal and coronal reformats also performed. All CT scans at [facility] use at least one of these dose o ptimization techniques: automated exposure control; mA and/or kV adjustment per patient size (include s targeted exams where dose is matched to clinical indication); or iterative reconstruction. DLP: 842.84 mGy.cm COMPARISON: 08/04/2021 Mild straightening of the normal cervical lordosis. Marked narrowing of the predental space. Cranioce rvical alignment is normal. Mild narrowing of the facet joints. Less than 2 mm anterolisthesis of C4. Mild disc space narrowing throughout. C2-C3: Normal. C3-C4: LEFT foraminal stenosis and facet joint arthritis. C4-C5: Bilateral foraminal narrowing due to facet and osteophyte disease. C5-C6: Normal. C6-C7: Mild facet joint arthritis. C7-T1: Mild osteophytic ridging and facet disease. Mild LEFT foraminal narrowing. Suspect remote nondisplaced rib fracture posteriorly on the LEFT involving the third rib. CT/CT cervical spin wo con* [id number] IMPRESSION: 1. No acute cervical spine fracture. 2. No high-grade central or foraminal stenosis. 3. Cervical spondylitic disease as described above.
--- NOTE | 2021-09-17 11:20 | CT_ITS ---
WS: [id number] CT HEAD NONCONTRAST HISTORY: fall, ams TECHNIQUE: Contiguous axial imaging performed through the brain in 2.5 mm imaging. Bone and soft tiss ue windows. Sagittal and coronal reformats reviewed. All CT scans at [facility] use at least one of these dose optimization techniques: automated exposure control; mA and/or kV adjustment per pa tient size (includes targeted exams where dose is matched to clinical indication); or iterative recon struction. DLP: 1226.82 mGy.cm COMPARISON: 08/04/2021 No acute intracranial hemorrhage, midline shift or mass effect. Mild atrophy. Large area of encephalomalacia in the LEFT frontoparietal region. Tiny lacunar infarct s in the RIGHT thalamus and anterior limb of the RIGHT internal capsule. Ventricles: Very mild enlargement of the ventricles similar to the prior study. No hydrocephalus. No inferior displacement of cerebellar tonsils. Paranasal sinuses: Mucous retention cyst and mucoperiosteal thickening in the LEFT maxillary sinus. M ucoperiosteal thickening in the RIGHT maxillary sinus. No air-fluid levels. Mastoid air cells: Well pneumatized. Calvarium and scalp: LEFT temporal craniectomy. CT/CT head wo con* [id number] IMPRESSION: 1. No acute intracranial hemorrhage or edema. 2. 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 Stable over multiple prior exams.
--- NOTE | 2021-09-17 11:21 | ECG_ITS ---
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 Measurements Intervals [place] Rate: 56 P: 42 MT: 143 QRS: -2 QRSD: 97 T: 2 QT: 443 QTc: 430 Interpretive Statements SINUS BRADYCARDIA Compared to ECG 08/03/2020 12:46:44 Sinus rhythm no longer present Electronically Signed On 09-17-2021 12:11:59 BOTTLE SELECTOR by Austin Martinez M.D. [email or web address] [email or web address] medical centerGoCoopcoshocton regional medical centerFamilySkyline/store/[id number]
[2021-09-17 11:30] LABS: Glucose Point of Care 94 mg/dL (70-110)
--- NOTE | 2021-09-17 11:33 | PC.NURSE ---
PT HAVING AMS, PT HAVING TO BE REMINDED TO STAY IN BED. PT UNABLE TO TELL ME A&O QUESTIONS. CHARGE MADE AWARE. UC TO FIND SITTER.
[2021-09-17 11:36] LABS: Basophils # 0.1 10^3/uL (0.0-0.1); Basophils % 0.8 %; Eosinophils # 0.2 10^3/uL (0.0-0.8); Eosinophils % 2.5 %; Hematocrit 35.9 % (42.0-52.0); Hemoglobin 11.8 g/dL (11.7-16.6); Lymphocytes # 1.8 10^3/uL (0.8-4.8); Lymphocytes % 28.9 %; Mean Corpuscular HGB Conc 32.9 g/dL (30.0-36.0); Mean Corpuscular Hemoglobin 30.3 pg (28.0-34.0); Mean Corpuscular Volume 92.1 fl (80-94); Mean Platelet Volume 9.8 fL (7.4-10.4); Monocytes # 0.6 10^3/uL (0.2-0.9); Monocytes % 9.9 %; Neutrophils % 57.7 %; Nucleated Red Blood Cells % 0 %; Platelet Count 226 10^3/cmm (130-400); Red Cell Distribution Width 13.2 % (12.1-15.1); White Blood Count 6.1 10^3/uL (4.0-10.0)
[2021-09-17] MEDS: tetanus-dipt-pertussis 0.5 mL SDV IM (11:46)
[2021-09-17 12:02] LABS: Troponin(5th) Baseline 16 ng/L (0-15)
[2021-09-17 12:03] LABS: Alanine Aminotransferase 10 U/L (0-41); Albumin Level 3.8 g/dL (3.5-5.2); Alkaline Phosphatase 90 IU/L (40-130); Anion Gap 15.1 (5-19); Aspartate Amino Transferase 14 U/L (0-40); Blood Urea Nitrogen 22 mg/dL (8-23); Calcium 8.9 mg/dL (8.5-10.5); Carbon Dioxide 24 mmol/L (22-29); Chloride 105 mmol/L (98-107); Globulin 2.5 g/dL (1.3-4.6); Glucose 100 mg/dL (65-115); Osmolality Calculated 293 mOsm/kg (285-295); Potassium 4.1 mmol/L (3.5-5.1); Sodium 140 mmol/L (136-145); Total Bilirubin 0.3 mg/dL (0.15-1.2); Total Protein 6.3 g/dL (6.6-8.7)
--- NOTE | 2021-09-17 12:17 | PC.PHAR ---
pt is from [facility]-riki nurse from [place] states the pt took his am meds-medications entered are from the pts mar
--- NOTE | 2021-09-17 12:28 | XR_ITS ---
WS: [id number] Exam: XR chest 1V portable [id number] Date/Time of Exam: 09/17/2021 12:28 PM Reason For Exam: fall The lungs are clear and fully expanded. Cardiomediastinal silhouette is unremarkable. No pleural effu carmelo. There appears to be a nondisplaced fracture along the lateral margin of the left fourth rib. XR/XR chest 1V portable [id number] IMPRESSION: 1. Probable nondisplaced fracture along the lateral margin of the left fourth r ib. 2. No acute infiltrate or pneumothorax.
--- NOTE | 2021-09-17 12:28 | CT_ITS ---
WS: [id number] CT CHEST, ABDOMEN AND PELVIS WITH CONTRAST HISTORY: fall, abd pain RLQ TECHNIQUE: Contiguous 5 mm axial imaging performed through the chest, abdomen and pelvis with IV cont rast, oral contrast has not been provided. Coronal and sagittal reformats chest. Coronal and sagittal reformats through the abdomen and pelvis. All CT scans at [facility] use at least one of the se dose optimization techniques: automated exposure control; mA and/or kV adjustment per patient size (includes targeted exams where dose is matched to clinical indication); or iterative reconstruction. CONTRAST: Omnipaque 300; 95 mL IV. DLP: 1898.49 mGy.cm COMPARISON: None available. Chest CT: Mild dependent changes. No pleural fluid, pneumothorax or contusion. Mild atherosclerotic c hanges within the aorta. Normal size pulmonary artery. Heart size is normal. Small hiatal hernia. No mediastinal or hilar adenopathy. Thoracic scoliosis. No spine fractures are identified. Again noted i s a probable remote nondisplaced fracture involving the posterior LEFT third rib. Remote posterior LE FT fourth and fifth ribs. Healing fracture involving the lateral fourth and fifth ribs. Abdomen CT: There are a few small hypodensities within the liver which are too small to characterize. 2.6 x 2.4 cm. Portal vein is normal. No filling defect in the superior mesenteric vein. Normally dis tended gallbladder. No bile duct dilatation. Normal spleen and pancreas. No adrenal mass. Mild athero sclerotic changes of aorta. Normal variant celiac axis. No adenopathy or free fluid. Pelvic CT: Moderate fecal retention throughout the colon. No GI tract obstruction. Inguinal canals ar e patent bilaterally containing fat only. Prostate gland is heterogeneous and enlarged encroaching in to the urinary bladder. Prostate measures 7.2 x 5.5 x 5.7 cm. Sclerotic focus in the proximal LEFT femur. There is an additional sclerotic focus within L2. These a re probably bone islands. CT/CT chest abd pel w con* IMPRESSION: 1. No pulmonary contusion or pneumothorax. 2. Age indeterminate but possibly acute lateral LEFT fourth and fifth rib frac tures. There are additional more posterior fractures in the upper LEFT thorax w hich appear healed. 3. No visceral organ injury. 4. No ascites or free air. 5. Marked prostate enlargement.
--- NOTE | 2021-09-17 12:39 | PC.NURSE ---
PT CATH'D FOR URINE PER MD LANDRY
[2021-09-17 13:03] LABS: Add Urine Microscopic? YES; Bilirubin Urine Neg (Negative); Blood Urine 3+ (Negative); Glucose Urine UA Norm (Normal); Ketones Urine Negative (Negative); Leukocyte Esterase Urine Negative (Negative); Nitrate Urine Negative (Negative); Protein Urine 1+ (Negative); RBC Urine TOO NUMEROUS TO CNT /hpf (0-2); Specific Gravity, Urine 1.015 (1.005-1.030); Urine Appearance Hazy (CLEAR); Urine Color Orange (Yellow); Urobilinogen Urine 1 mg/dL (Negative); pH Urine 7 (5-7)
[2021-09-17 13:04] LABS: Add Urine Culture? Yes; Bacteria Urine TRACE /hpf; Squamous Epithelial Cell Urine 0-4 /hpf (0-5)
--- NOTE | 2021-09-17 13:21 | ECG_ITS ---
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 Measurements Intervals [place] Rate: 63 P: 53 [place]: 183 QRS: -5 QRSD: 98 T: 0 QT: 429 QTc: 440 Interpretive Statements SINUS RHYTHM Compared to ECG 09/17/2021 11:43:49 Sinus bradycardia no longer present Electronically Signed On 09-17-2021 22:21:45 FLIGHT TEACHER by Austin Martinez M.D. [email or web address] memorial [email or web address] medical cleveland clinic rehabilitation hospital, beachwoodHeavenly Foods/[id number]
[2021-09-17] MEDS: iohexol 300 mg/mL 100 mL Btl IV (13:30)
[2021-09-17 13:47] LABS: Troponin 5 2HR 12.93 ng/L (0-15)
[2021-09-17 14:06] LABS: Troponin 5 2HR Delta -3.07 ABS# (0-10)
[2021-09-17] MEDS: lidocaine 1% INJ 20 mL INJECTION (15:24)
== END 2021-09-17 18:26 | disposition home or self-care (01) ==
PROVIDERS: Emergency Provider Emergency Medicine; PCP Nurse Practitioner Family
DX: R41.82 Altered mental status, unspecified (principal); R31.9 Hematuria, unspecified; N40.0 Benign prostatic hyperplasia without lower urinary tract symptoms; S09.90XA Unspecified injury of head, initial encounter; S01.01XA Laceration without foreign body of scalp, initial encounter; S22.42XA Multiple fractures of ribs, left side, initial encounter for closed fracture; Z87.891 Personal history of nicotine dependence; G30.9 Alzheimer's disease, unspecified; F02.80 Dementia in other diseases classified elsewhere, unspecified severity, without behavioral disturbance, psychotic disturbance, mood disturbance, and anxiety; W19.XXXA Unspecified fall, initial encounter; Y92.129 Unspecified place in nursing home as the place of occurrence of the external cause; Z23 Encounter for immunization
CPT/HCPCS: 12002; 36415; 36416; 70450; 71045; 71260; 72125; 74177; 80053; 81001; 82962; 84484; 85025; 87086; 90471; 90715; 93005; 99283; Q9967